=== PATIENT | female | born 1980 | race Caucasian/White ===

== ENCOUNTER → 2016-11-22 | Outpatient (CLI) | payer BC ==
[2016-11-22 12:45] LABS: HEMATOCRIT 40.3 % (34.6-47.8); HEMOGLOBIN 13.3 g/dL (11.7-16.4); WHITE BLOOD COUNT 8.8 x10^3/uL (3.4-10)
[2016-11-22 12:57] LABS: BLOOD UREA NITROGEN 9 mg/dL (7-18)
[2016-11-22 13:05] LABS: ASPARTATE AMINO TRANSFERASE 17 U/L (15-37)
[2016-11-26 13:07] LABS: COMPLEMENT C3 145 mg/dL (82-167); COMPLEMENT C4 27 mg/dL (14-44); INTERMYOFIBRILLAR AB Negative (Neg:<1:20); MITOCHONDRIAL (M2) AB 6.6 Units (0.0-20.0); PARIETAL CELL AB 3.4 Units (0.0-20.0); RA LATEX TURBIDITY <10.0 IU/mL (0.0-13.9); SARCOLEMMA AB Negative (Neg:<1:20); STRIATION AB Negative (Neg:<1:40); THYROID PEROXIDASE (TPO) AB 17 IU/mL (0-34)
== END | disposition home or self-care (01) ==
LOC: LAB 09:26
PROVIDERS: ATTEND Physician Assistant
DX: Z00.01 Encounter for general adult medical examination with abnormal findings (principal); Z13.220 Encounter for screening for lipoid disorders; R53.83 Other fatigue; E55.9 Vitamin D deficiency, unspecified; E78.5 Hyperlipidemia, unspecified; I10 Essential (primary) hypertension; G47.00 Insomnia, unspecified; M54.5 Low back pain; Z79.899 Other long term (current) drug therapy
CPT/HCPCS: 36415; 80053; 80061; 81374; 82306; 83036; 83516; 84439; 84443; 84480; 85025; 86038; 86160; 86225; 86235; 86255; 86256; 86376; 86431; 86803

== ENCOUNTER → 2017-07-04 | Outpatient (CLI) | payer BC ==
[2017-07-04 12:36] LABS: BASOPHILS # (AUTO) 0.02 x10^3/uL (0-0.1); BASOPHILS % (AUTO) 0 % (0-1); EOSINOPHILS # (AUTO) 0.11 x10^3/uL (0-0.4); EOSINOPHILS % (AUTO) 1 % (1-7); LYMPHOCYTES # (AUTO) 1.77 x10^3/uL (1-3.4); LYMPHOCYTES % (AUTO) 19 % (22-44); MD NO; MEAN CORPUSCULAR HEMOGLOBIN 30.5 pg (27.0-34.8); MEAN CORPUSCULAR HGB CONC 32.9 g/dL (32.4-35.8); MEAN CORPUSCULAR VOLUME 92.8 fL (80-100); MEAN PLATELET VOLUME 8.7 fL (7.4-10.4); MONOCYTES # (AUTO) 0.59 x10^3/uL (0.2-0.8); MONOCYTES % (AUTO) 6 % (2-9); NEUTROPHILS # (AUTO) 6.79 x10^3/uL (1.8-6.8); NEUTROPHILS % (AUTO) 73 % (42-75); PLATELET COUNT 309 x10^3/uL (130-400); RED BLOOD COUNT 4.43 x10^6/uL (3.82-5.3); RED CELL DISTRIBUTION WIDTH 12.7 % (9.6-15.2)
[2017-07-04 12:43] LABS: MICROSCOPIC AUTO
[2017-07-04 12:45] LABS: CULTURE INDICATED? YES
[2017-07-04 12:50] LABS: ALANINE AMINOTRANSFERASE 29 U/L (12-78); ALBUMIN 3.1 g/dL (3.4-5.0); ANION GAP 6 mmol/L (5-15); CALCIUM 8.1 mg/dL (8.5-10.1); CHLORIDE 106 mmol/L (98-107); CREATININE 0.95 mg/dL (0.55-1.02)
[2017-07-04 12:58] LABS: ALKALINE PHOSPHATASE 51 U/L (45-117); BILIRUBIN,TOTAL 0.5 mg/dL (0.2-1.0); CHOL/HDL RATIO 3.5; CHOLESTEROL, TOTAL 187 mg/dL (140-239); FREE T4 (FREE THYROXINE) 1.28 ng/dL (0.76-1.46); HDL CHOL % 28 % (28-40); HDL CHOLESTEROL (DIRECT) 53 mg/dL (40-60); LDL CHOLESTEROL,CALCULATED 116 mg/dL (54-169); LDL/HDL RATIO 2.2 (0.5-3.0); TOTAL PROTEIN 7.4 g/dL (6.4-8.2); TRIGLYCERIDES 92 mg/dL (50-200); VLDL CHOLESTEROL 18 mg/dL (0-25)
[2017-07-04 13:07] LABS: HEMOGLOBIN A1C 5.1 % (4.2-6.3)
== END | disposition home or self-care (01) ==
LOC: CFH 10:54
PROVIDERS: ATTEND Nurse Practitioner Primary Care
DX: I10 Essential (primary) hypertension (principal); E78.5 Hyperlipidemia, unspecified; R53.83 Other fatigue; E55.9 Vitamin D deficiency, unspecified; G47.00 Insomnia, unspecified; M54.5 Low back pain; R42 Dizziness and giddiness; Z79.899 Other long term (current) drug therapy; Z13.220 Encounter for screening for lipoid disorders
CPT/HCPCS: 36415; 80053; 80061; 81001; 82043; 82306; 83036; 84439; 84443; 84480; 85025; 87086

== ENCOUNTER → 2018-05-07 | Outpatient (CLI) | payer BC ==
[2018-05-07 15:58] LABS: ALBUMIN 3.5 g/dL (3.4-5.0); ANION GAP 8 mmol/L (5-15); CHLORIDE 102 mmol/L (98-107); CREATININE 0.89 mg/dL (0.55-1.02); IRON LEVEL 100 mcg/dL (50-170)
[2018-05-07 16:01] LABS: % IRON SATURATION 20 % (20-55); ALANINE AMINOTRANSFERASE 25 U/L (12-78); ALKALINE PHOSPHATASE 66 U/L (45-117); BILIRUBIN,TOTAL 1.7 mg/dL (0.2-1.0); TOTAL IRON BINDING CAPACITY 488 mcg/dL (250-450); TOTAL PROTEIN 8.1 g/dL (6.4-8.2); TRANSFERRIN 395 mg/dL (200-360)
== END | disposition home or self-care (01) ==
LOC: CFH 12:10
PROVIDERS: ATTEND Nurse Practitioner Primary Care
DX: Z13.220 Encounter for screening for lipoid disorders (principal); I99.8 Other disorder of circulatory system; E78.5 Hyperlipidemia, unspecified; I10 Essential (primary) hypertension; E55.9 Vitamin D deficiency, unspecified; N92.6 Irregular menstruation, unspecified; R53.83 Other fatigue; Z79.899 Other long term (current) drug therapy
CPT/HCPCS: 36415; 80053; 82306; 82728; 83540; 83550; 84466

== ENCOUNTER 2019-03-30 15:46 | Emergency (ER) | payer BC ==
[~2019-03-30] VITALS: Ht 170.2 cm; Wt 138.3 kg
[2019-03-30] MEDS ORDERED: SODIUM CHLORIDE FLUSH 10ML SYR IVF ONE (16:30)
[2019-03-30 17:17] LABS: BASOPHILS # (AUTO) 0.01 x10^3/uL (0-0.1); BASOPHILS % (AUTO) 0 % (0-1); EOSINOPHILS # (AUTO) 0.11 x10^3/uL (0-0.4); EOSINOPHILS % (AUTO) 1 % (1-7); LYMPHOCYTES # (AUTO) 2.26 x10^3/uL (1-3.4); LYMPHOCYTES % (AUTO) 25 % (22-44); MD NO; MEAN PLATELET VOLUME 7.7 fL (7.4-10.4); MONOCYTES # (AUTO) 0.75 x10^3/uL (0.2-0.8); MONOCYTES % (AUTO) 8 % (2-9); NEUTROPHILS # (AUTO) 5.88 x10^3/uL (1.8-6.8); NEUTROPHILS % (AUTO) 65 % (42-75); PLATELET COUNT 309 x10^3/uL (130-400); RED BLOOD COUNT 4.31 x10^6/uL (3.82-5.3); RED CELL DISTRIBUTION WIDTH 13.5 % (9.6-15.2)
[2019-03-30 17:21] LABS: ALBUMIN 3.6 g/dL (3.4-5.0); ANION GAP 4 mmol/L (5-15); CALCIUM 9.1 mg/dL (8.5-10.1); CHLORIDE 107 mmol/L (98-107)
[2019-03-30 17:27] LABS: CREATININE 0.94 mg/dL (0.55-1.02)
[2019-03-30 18:29] VITALS: BP 146/93
--- NOTE | 2019-03-30 18:31 | NUR ---
RECHECKED VSS STABLE AT TRIAGE WHILE PT IS WAITING IN LOBBY
--- NOTE | 2019-03-30 18:51 | NUR ---
pt to room from lobby
--- NOTE | 2019-03-30 19:11 | NUR ---
VB started beginning of last week. Soaking approx 3-4 pads over 10 hours. Pain on Saturday. No other pain/cramping.
[2019-03-30 19:16] LABS: INTERNATIONAL NORMALIZED RATIO 0.96 (0.93-1.1); PROTHROMBIN TIME 10.2 Seconds (9.6-11.5)
--- NOTE | 2019-03-30 20:09 | NUR ---
Referenced MD about straight cath orders. Not indicated at this time per MD. Awaiting discharge papers.
--- NOTE | 2019-03-30 20:16 | NUR ---
Discharge instructions given. All questions and concerns addressed. Patient ambulatory with a steady gait. Belongings with patient.
== END 2019-03-30 20:17 | disposition home or self-care (01) ==
LOC: ED 20:10
DX: N93.8 Other specified abnormal uterine and vaginal bleeding (principal); I10 Essential (primary) hypertension
CPT/HCPCS: 36415; 80048; 82040; 84703; 85025; 85610; 85730; 99283

== ENCOUNTER → 2020-11-21 | Outpatient (CLI) | payer BC ==
[2020-11-21 10:02] LABS: BASOPHILS % (AUTO) 1 % (0-1); EOSINOPHILS % (AUTO) 2 % (1-7); LYMPHOCYTES % (AUTO) 20 % (22-44); MEAN CORPUSCULAR HEMOGLOBIN 31.8 pg (27.0-34.8); MEAN CORPUSCULAR HGB CONC 33.8 g/dL (32.4-35.8); MEAN PLATELET VOLUME 7.5 fL (7.4-10.4); MONOCYTES % (AUTO) 9 % (2-9); NEUTROPHILS % (AUTO) 69 % (42-75); PLATELET COUNT 363 x10^3/uL (130-400); RED BLOOD COUNT 4.37 x10^6/uL (3.82-5.3); RED CELL DISTRIBUTION WIDTH 12.8 % (9.6-15.2)
[2020-11-21 10:04] LABS: MICROSCOPIC AUTO
[2020-11-21 10:10] LABS: ALBUMIN 3.3 g/dL (3.4-5.0); CALCIUM 8.5 mg/dL (8.5-10.1); CHLORIDE 106 mmol/L (98-107)
[2020-11-21 10:22] LABS: ALANINE AMINOTRANSFERASE 19 U/L (12-78); ALKALINE PHOSPHATASE 84 U/L (45-117); ANION GAP 6 mmol/L (5-15); BILIRUBIN,TOTAL 0.7 mg/dL (0.2-1.0); CHOL/HDL RATIO 2.6; CHOLESTEROL, TOTAL 137 mg/dL (140-239); HDL CHOL % 38 % (28-40); HDL CHOLESTEROL (DIRECT) 52 mg/dL (40-60); LDL CHOLESTEROL,CALCULATED 66 mg/dL (54-169); LDL/HDL RATIO 1.3 (0.5-3.0); TOTAL PROTEIN 7.6 g/dL (6.4-8.2); TRIGLYCERIDES 93 mg/dL (50-200); VLDL CHOLESTEROL 19 mg/dL (0-25)
[2020-11-21 10:23] LABS: FREE T4 (FREE THYROXINE) 0.95 ng/dL (0.76-1.46)
== END | disposition home or self-care (01) ==
LOC: LAB 09:26
PROVIDERS: ATTEND Nurse Practitioner Primary Care
DX: Z13.220 Encounter for screening for lipoid disorders (principal); I10 Essential (primary) hypertension; E78.5 Hyperlipidemia, unspecified; E55.9 Vitamin D deficiency, unspecified; E27.40 Unspecified adrenocortical insufficiency; E34.9 Endocrine disorder, unspecified; E66.9 Obesity, unspecified; R23.4 Changes in skin texture; L67.8 Other hair color and hair shaft abnormalities; Z79.899 Other long term (current) drug therapy
CPT/HCPCS: 36415; 80053; 80061; 81001; 82043; 82306; 82652; 83036; 84439; 84443; 84481; 85025; 87086